=== PATIENT | male | born 1930 | race Caucasian/White ===

== ENCOUNTER 2017-08-25 10:28 | Day surgery (SDC) | payer OTHER ==
[~2017-08-25] VITALS: Ht 180.3 cm; Wt 84.5 kg
[~2017-08-25 10:28] MED LIST: ALBU90OI6 INH; ASPI81CH PO; BACL10 PO; CYCL10 PO; Calcium Carbon500 MG PO; Cephalexin250 MG/5 M PO; DOCU100 PO; ERGO400 PO; EXTRA STRENGTH500 MG PO; Garlic Oil1000 MG PO; Hair, Skin & N1 EACH PO; Keflex500 MG PO; LAVAP17G PO; LEVFLO500 PO; LEVSOD100 PO; LEVSOD88 PO; OXYC5 PO; POTBIC25 PO; SENN187 PO; STIMULANT LAXA1 EACH PO; Stool Softener100 MG PO; TAMS.4ER PO; TRAM50 PO; Zofran Odt8 MG SL
== END 2017-08-25 13:13 | disposition home or self-care (01) ==
LOC: ORSCSDS 10:28
PROVIDERS: Orthopaedic Surgery
PROC: 01N54ZZ Release Median Nerve, Percutaneous Endoscopic Approach (ICD-10-PCS; principal; 2017-08-25 12:00)
DX: G56.02 Carpal tunnel syndrome, left upper limb (principal); I10 Essential (primary) hypertension; J44.9 Chronic obstructive pulmonary disease, unspecified; Z87.891 Personal history of nicotine dependence; Z79.899 Other long term (current) drug therapy
CPT/HCPCS: J0171; J0690; J2250; J3010; J7120

== ENCOUNTER 2018-03-31 07:35 | Day surgery (SDC) | payer OTHER ==
[~2018-03-31] VITALS: Ht 180.3 cm; Wt 83.9 kg
[~2018-03-31 07:35] MED LIST changes: +Advil200 M1 PO; +Garlic1 EAC1 PO
--- NOTE | 2018-03-31 08:16 | NUR ---
History, Chart, Medications and Allergies reviewed before start of procedure. Lungs clear T/O to Auscultation. Patient confirms NPO status and agrees with scheduled surgery. Patient States Post-Procedure ride home has been arranged.
--- NOTE | 2018-03-31 09:01 | NUR ---
03/31/18 0901 Leonidas Pompa See Anesthesia record O2 VIA N/C INTACT THROUGHOUT SEDATION/PROCEDURE. Bite Block PlacedPatient to ENDO 1History, Chart, Medications and Allergies reviewed before start of procedure.MONITOR INTACT WITH CONTINUOUS PULSE OXIMETRY AND INTERMITTENT BP.
--- NOTE | 2018-03-31 10:06 | NUR ---
Patient up to Ambulate independently. Gait steady. Discharge instructions reviewed with patient. Patient verbalizes understanding. Copy given to patient to take home. Patient States Post-Procedure ride home has been arranged. Discharged via wheelchair to private car for ride home.
== END 2018-03-31 23:34 | disposition home or self-care (01) ==
LOC: ORSCMMR 07:35 → ORD 09:15 → ORSCMMR 09:15
PROVIDERS: Internal Medicine Gastroenterology
PROC: 0DJ08ZZ Inspection of Upper Intestinal Tract, Via Natural or Artificial Opening Endoscopic (ICD-10-PCS; principal; 2018-03-31 09:15)
PROC: 0D757ZZ Dilation of Esophagus, Via Natural or Artificial Opening (ICD-10-PCS; principal; 2018-03-31 09:15)
DX: R13.10 Dysphagia, unspecified (principal); K22.2 Esophageal obstruction; K44.9 Diaphragmatic hernia without obstruction or gangrene; I10 Essential (primary) hypertension; C34.90 Malignant neoplasm of unspecified part of unspecified bronchus or lung; Z79.82 Long term (current) use of aspirin; Z79.899 Other long term (current) drug therapy
CPT/HCPCS: J7120

== ENCOUNTER 2018-08-01 17:10 | Inpatient (IN) | payer OTHER ==
[~2018-08-01] VITALS: Ht 182.9 cm; Wt 79.3 kg
[~2018-08-01 17:10] MED LIST changes: -ASPI81CH PO; +Aspirin EC81 MG PO; -LEVSOD100 PO; +LEVSOD112 PO
[2018-08-01 19:34] LABS: BASOPHILS ABSOLUTE AUTO 0.05 K/mm3 (0.00-0.23); BASOPHILS PERCENT AUTO 1 % (0-2); EOSINOPHILS ABSOLUTE AUTO 0.05 K/mm3 (0.00-0.68); EOSINOPHILS PERCENT AUTO 1 % (0-6); Hematocrit 42.1 % (37.0-53.0); Hemoglobin 13.7 g/dL (13.5-17.5); IMMATURE GRAN ABSOLUTE AUTO 0.04 K/mm3 (0.00-0.10); IMMATURE GRAN PERCENT AUTO 0 % (0-1); LYMPHOCYTES ABSOLUTE AUTO 1.23 K/mm3 (0.84-5.20); LYMPHOCYTES PERCENT AUTO 12 % (21-46); MONOCYTES PERCENT AUTO 8 % (4-13); Mean Corpuscular HGB 33.2 pg (26.0-34.0); Mean Corpuscular HGB Conc 32.5 g/dL (31.5-36.5); Mean Corpuscular Volume 102 fL (80-100); Mean Platelet Volume 9.7 fL (9.1-12.4); NEUTROPHILS PERCENT AUTO 80 % (41-73); Platelet Count 309 K/mm3 (150-400); RDW Coefficient Variation 14.3 % (11.7-14.2); RDW Standard Deviation 53.9 fL (35.1-46.3); Red Blood Cell Count 4.13 M/mm3 (4.30-5.90); White Blood Cell Count 10.67 K/mm3 (4.00-11.30)
[2018-08-01 19:50] LABS: Albumin, Blood 3.9 g/dL (3.4-5.0); Albumin/Globulin Ratio 1.1 (0.8-1.8); Bilirubin, Total 1.6 mg/dL (0.1-1.0); Bun/Creatinine Ratio 18.5 (12.0-20.0); Calcium, Blood 9.8 mg/dL (8.5-10.1); Creatinine, Blood 1.46 mg/dL (0.60-1.20); Globulin, Blood 3.7 g/dL (2.2-4.0); Potassium, Blood 4.2 mmol/L (3.5-5.5); Total Protein, Blood 7.6 g/dL (6.4-8.2)
[2018-08-01 20:09] LABS: Source, Urine Clean Catch
[2018-08-01 20:13] LABS: Bilirubin, Urine Neg (Neg); Blood, Urine 5+ (Neg); Glucose Qualitative, Urine Neg (Neg); Ketones, Urine 1+ (Neg); Leukocyte Esterase, Urine 2+ (Neg); Nitrite, Urine Neg (Neg); Protein, Urine 2+ (Neg); Specific Gravity, Urine 1.015 (1.003-1.022); Urobilinogen, Urine 1+ (Normal)
[2018-08-01 20:21] LABS: Appearance, Urine Clear (Clear); Color, Urine Yellow (P-Yellow)
[2018-08-01 20:23] LABS: Bacteria Not Seen /hpf; Red Blood Cells, Urine 50-100 /hpf (0-2); Squamous Epithelial Cells Rare /hpf (Few)
[2018-08-01] MEDS ORDERED: TRAM50 PO (20:34)
[2018-08-01] MEDS ORDERED: VOLTAREN100 GM TOP (20:34)
[2018-08-02 04:57] LABS: BASOPHILS ABSOLUTE AUTO 0.03 K/mm3 (0.00-0.23); BASOPHILS PERCENT AUTO 1 % (0-2); EOSINOPHILS ABSOLUTE AUTO 0.09 K/mm3 (0.00-0.68); EOSINOPHILS PERCENT AUTO 2 % (0-6); Hematocrit 36.6 % (37.0-53.0); Hemoglobin 11.7 g/dL (13.5-17.5); IMMATURE GRAN ABSOLUTE AUTO 0.02 K/mm3 (0.00-0.10); IMMATURE GRAN PERCENT AUTO 0 % (0-1); LYMPHOCYTES ABSOLUTE AUTO 0.86 K/mm3 (0.84-5.20); LYMPHOCYTES PERCENT AUTO 16 % (21-46); MONOCYTES ABSOLUTE AUTO 0.65 K/mm3 (0.16-1.47); MONOCYTES PERCENT AUTO 12 % (4-13); Mean Corpuscular HGB 32.9 pg (26.0-34.0); Mean Corpuscular Volume 103 fL (80-100); Mean Platelet Volume 9.7 fL (9.1-12.4); NEUTROPHILS ABSOLUTE AUTO 3.85 K/mm3 (1.96-9.15); NEUTROPHILS PERCENT AUTO 70 % (41-73); Platelet Count 246 K/mm3 (150-400); RDW Coefficient Variation 14.2 % (11.7-14.2); Red Blood Cell Count 3.56 M/mm3 (4.30-5.90)
[2018-08-02 05:13] LABS: Calcium, Blood 8.5 mg/dL (8.5-10.1); Creatinine, Blood 1.39 mg/dL (0.60-1.20); Potassium, Blood 4.1 mmol/L (3.5-5.5)
--- NOTE | 2018-08-02 07:35 | NUR ---
SHIFT SUMMARY PT ADMITTED FROM ER THIS SHIFT. PT A&O X4 T/O SHIFT. 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 SCD'S TO BLE'S. SIDE RAILS X3 FOR SAFETY. PAIN IN BACK MANAGED PER EMAR. PT DENIED NAUSEA, CP AND SOB T/O SHIFT. PT INDEPENDENTLY BED MOBILE. CALL LIGHT IN REACH; PT DEMONSTRATES USE. REPORT GIVEN TO DAY SHIFT RN.
--- NOTE | 2018-08-02 18:42 | NUR ---
SHIFT SUMMARY PT HAS DONE WELL TODAY. WORKED WITH THERAPY, PAIN SEEMS TO BE MANAGED FAIRLY WELL, VOIDING, AND HAD SMALL BM.
[2018-08-03 06:08] LABS: Anion Gap 5 mmol/L (6-16); Blood Urea Nitrogen 18 mg/dL (8-24); Bun/Creatinine Ratio 17.5 (12.0-20.0); CO2, Blood 27 mmol/L (21-32); Calcium, Blood 8.4 mg/dL (8.5-10.1); Chloride, Blood 110 mmol/L (98-108); Creatinine, Blood 1.03 mg/dL (0.60-1.20); Glomerular Filtration Rate >60 (60-); Glucose, Blood 78 mg/dL (70-99); Potassium, Blood 4.5 mmol/L (3.5-5.5); Sodium, Blood 142 mmol/L (136-145)
[2018-08-03] MEDS ORDERED: LIDO700A20 TOP (11:32)
[2018-08-03] MEDS ORDERED: ONDA4ODT PO (11:38)
--- NOTE | 2018-08-03 12:34 | NUR ---
DISCHARGE PT AND SPOUSE PROVIDED WITH WRITTEN AND VERBAL DISCHARGE INSTRUCTIONS. THEY REPORTED UNDERSTANDING. PT ESCORTED OUT IN W/C.
== END 2018-08-03 12:15 | disposition home health service (06) | DRG 683 ==
LOC: ER 17:10 → SURS 21:02
PROVIDERS: Emergency Medicine; Hospitalist; Physician Assistant; ADMIT Family Medicine
DX: N17.9 Acute kidney failure, unspecified (principal); S32.010A Wedge compression fracture of first lumbar vertebra, initial encounter for closed fracture; J44.9 Chronic obstructive pulmonary disease, unspecified; N13.30 Unspecified hydronephrosis; N40.0 Benign prostatic hyperplasia without lower urinary tract symptoms; M19.90 Unspecified osteoarthritis, unspecified site; Z90.2 Acquired absence of lung [part of]; Z87.891 Personal history of nicotine dependence; Z90.49 Acquired absence of other specified parts of digestive tract; E86.0 Dehydration; Z79.82 Long term (current) use of aspirin; Z85.118 Personal history of other malignant neoplasm of bronchus and lung; W18.30XA Fall on same level, unspecified, initial encounter; Y93.89 Activity, other specified; E03.9 Hypothyroidism, unspecified
CPT/HCPCS: 36415; 51701; 72100; 72128; 72131; 80048; 80053; 81001; 85025; 87086; 93005; 93010; 94760; 96361-59; 96374-59; 96375-59; 97116; 97162; 97165; 97530; 97535; 99285-25; A9270-GY; J0696; J1170; J1650; J2405; J7030

== ENCOUNTER 2018-08-24 08:32 | Emergency (ER) | payer OTHER ==
[~2018-08-24] VITALS: Ht 180.3 cm; Wt 77.6 kg
[~2018-08-24 08:32] MED LIST changes: +LIDO700A20 TOP; +ONDA4ODT PO; +VOLTAREN100 GM TOP
[2018-08-24 10:12] LABS: BASOPHILS ABSOLUTE AUTO 0.05 K/mm3 (0.00-0.23); BASOPHILS PERCENT AUTO 1 % (0-2); EOSINOPHILS ABSOLUTE AUTO 0.16 K/mm3 (0.00-0.68); EOSINOPHILS PERCENT AUTO 4 % (0-6); Hematocrit 37.4 % (37.0-53.0); Hemoglobin 12.2 g/dL (13.5-17.5); IMMATURE GRAN ABSOLUTE AUTO 0.02 K/mm3 (0.00-0.10); IMMATURE GRAN PERCENT AUTO 1 % (0-1); LYMPHOCYTES ABSOLUTE AUTO 1.01 K/mm3 (0.84-5.20); LYMPHOCYTES PERCENT AUTO 23 % (21-46); MONOCYTES ABSOLUTE AUTO 0.44 K/mm3 (0.16-1.47); MONOCYTES PERCENT AUTO 10 % (4-13); Mean Corpuscular HGB 33.1 pg (26.0-34.0); Mean Corpuscular HGB Conc 32.6 g/dL (31.5-36.5); Mean Corpuscular Volume 101 fL (80-100); Mean Platelet Volume 9.8 fL (9.1-12.4); NEUTROPHILS ABSOLUTE AUTO 2.69 K/mm3 (1.96-9.15); NEUTROPHILS PERCENT AUTO 62 % (41-73); Platelet Count 248 K/mm3 (150-400); RDW Coefficient Variation 14.3 % (11.7-14.2); RDW Standard Deviation 53.2 fL (35.1-46.3); Red Blood Cell Count 3.69 M/mm3 (4.30-5.90); White Blood Cell Count 4.37 K/mm3 (4.00-11.30)
[2018-08-24 10:16] LABS: Source, Urine Clean Catch
[2018-08-24 10:20] LABS: Appearance, Urine Turbid (Clear); Bilirubin, Urine Neg (Neg); Blood, Urine 5+ (Neg); Color, Urine Brown (P-Yellow); Glucose Qualitative, Urine Neg (Neg); Ketones, Urine 1+ (Neg); Leukocyte Esterase, Urine 3+ (Neg); Nitrite, Urine Neg (Neg); Protein, Urine 4+ (Neg); Urobilinogen, Urine NORM (Normal)
[2018-08-24 10:34] LABS: Alanine Aminotransfer (ALT/SGP 30 U/L (12-78); Albumin, Blood 3.6 g/dL (3.4-5.0); Albumin/Globulin Ratio 1.1 (0.8-1.8); Alk Phos 99 U/L (50-136); Anion Gap 6 mmol/L (6-16); Aspartate Aminotrans (AST/SGOT 24 U/L (12-37); Bilirubin, Total 0.8 mg/dL (0.1-1.0); Blood Urea Nitrogen 20 mg/dL (8-24); Bun/Creatinine Ratio 21.7 (12.0-20.0); CO2, Blood 28 mmol/L (21-32); Calcium, Blood 8.9 mg/dL (8.5-10.1); Chloride, Blood 107 mmol/L (98-108); Creatinine, Blood 0.92 mg/dL (0.60-1.20); Globulin, Blood 3.4 g/dL (2.2-4.0); Glomerular Filtration Rate >60 (60-); Glucose, Blood 95 mg/dL (70-99); Potassium, Blood 4.1 mmol/L (3.5-5.5); Sodium, Blood 141 mmol/L (136-145)
[2018-08-24 10:37] LABS: Bacteria Few /hpf; Red Blood Cells, Urine TNTC /hpf (0-2); Squamous Epithelial Cells Not Seen /hpf (Few)
[2018-08-24] MEDS ORDERED: Nitrofurantoin100 MG PO (10:56)
== END 2018-08-24 13:12 | disposition home or self-care (01) ==
LOC: ER 08:32
PROVIDERS: Physician Assistant
DX: N39.0 Urinary tract infection, site not specified (principal); Z85.118 Personal history of other malignant neoplasm of bronchus and lung; Z85.01 Personal history of malignant neoplasm of esophagus; Z87.891 Personal history of nicotine dependence; Z79.899 Other long term (current) drug therapy; Z79.891 Long term (current) use of opiate analgesic
CPT/HCPCS: 36415; 74176; 80053; 81001; 85025; 87086; 99284-25

== ENCOUNTER 2018-09-20 11:26 | Emergency (ER) | payer OTHER ==
[~2018-09-20] VITALS: Ht 180.3 cm; Wt 72.6 kg
[~2018-09-20 11:26] MED LIST changes: +Nitrofurantoin100 MG PO
[2018-09-20 12:11] LABS: BASOPHILS ABSOLUTE AUTO 0.04 K/mm3 (0.00-0.23); BASOPHILS PERCENT AUTO 1 % (0-2); EOSINOPHILS ABSOLUTE AUTO 0.09 K/mm3 (0.00-0.68); EOSINOPHILS PERCENT AUTO 2 % (0-6); Hematocrit 38.4 % (37.0-53.0); Hemoglobin 12.6 g/dL (13.5-17.5); IMMATURE GRAN ABSOLUTE AUTO 0.01 K/mm3 (0.00-0.10); IMMATURE GRAN PERCENT AUTO 0 % (0-1); LYMPHOCYTES ABSOLUTE AUTO 0.94 K/mm3 (0.84-5.20); LYMPHOCYTES PERCENT AUTO 23 % (21-46); MONOCYTES ABSOLUTE AUTO 0.39 K/mm3 (0.16-1.47); MONOCYTES PERCENT AUTO 10 % (4-13); Mean Corpuscular HGB 33.4 pg (26.0-34.0); Mean Corpuscular HGB Conc 32.8 g/dL (31.5-36.5); Mean Corpuscular Volume 102 fL (80-100); Mean Platelet Volume 9.8 fL (9.1-12.4); NEUTROPHILS ABSOLUTE AUTO 2.56 K/mm3 (1.96-9.15); NEUTROPHILS PERCENT AUTO 64 % (41-73); Platelet Count 216 K/mm3 (150-400); RDW Coefficient Variation 14.4 % (11.7-14.2); RDW Standard Deviation 54.2 fL (35.1-46.3); Red Blood Cell Count 3.77 M/mm3 (4.30-5.90); White Blood Cell Count 4.03 K/mm3 (4.00-11.30)
[2018-09-20 12:33] LABS: Alanine Aminotransfer (ALT/SGP 26 U/L (12-78); Albumin, Blood 3.6 g/dL (3.4-5.0); Alk Phos 71 U/L (50-136); Anion Gap 6 mmol/L (6-16); Aspartate Aminotrans (AST/SGOT 20 U/L (12-37); Bilirubin, Total 0.8 mg/dL (0.1-1.0); Blood Urea Nitrogen 13 mg/dL (8-24); Bun/Creatinine Ratio 13.1 (12.0-20.0); CO2, Blood 29 mmol/L (21-32); Calcium, Blood 9.1 mg/dL (8.5-10.1); Chloride, Blood 108 mmol/L (98-108); Creatinine, Blood 0.99 mg/dL (0.60-1.20); Globulin, Blood 3.5 g/dL (2.2-4.0); Glomerular Filtration Rate >60 (60-); Glucose, Blood 93 mg/dL (70-99); Potassium, Blood 4.1 mmol/L (3.5-5.5); Sodium, Blood 143 mmol/L (136-145); Total Protein, Blood 7.1 g/dL (6.4-8.2)
[2018-09-20] MEDS ORDERED: Prilosec Otc20 MG PO (13:10)
[2018-11-16] MEDS ORDERED: DOCU100 PO (14:38)
[2018-11-16] MEDS ORDERED: TRAM50 PO (14:39)
[2018-11-16] MEDS ORDERED: VITAMIN D31000 UNI1 PO (14:40)
[2018-11-16] MEDS ORDERED: ACET325 PO (14:40)
[2018-11-16] MEDS ORDERED: ONDA4 PO (14:41)
[2018-11-16] MEDS ORDERED: ONDA4ODT (14:42)
== END 2018-09-20 13:28 | disposition home or self-care (01) ==
LOC: ER 11:26
PROVIDERS: Emergency Medicine
DX: K80.70 Calculus of gallbladder and bile duct without cholecystitis without obstruction (principal); J44.9 Chronic obstructive pulmonary disease, unspecified; Z85.118 Personal history of other malignant neoplasm of bronchus and lung; Z85.01 Personal history of malignant neoplasm of esophagus; Z87.891 Personal history of nicotine dependence; Z79.899 Other long term (current) drug therapy
CPT/HCPCS: 36415; 74177; 80053; 83690; 85025; 99284-25; Q9967

== ENCOUNTER 2018-10-07 09:24 | Emergency (ER) | payer OTHER ==
[~2018-10-07] VITALS: Ht 180.3 cm; Wt 69.0 kg
[~2018-10-07 09:24] MED LIST changes: +Prilosec Otc20 MG PO
[2018-10-07] MEDS ORDERED: Ultram50 MG PO (11:28)
[2018-11-16] MEDS ORDERED: DOCU100 PO (14:38)
[2018-11-16] MEDS ORDERED: TRAM50 PO (14:39)
[2018-11-16] MEDS ORDERED: VITAMIN D31000 UNI1 PO (14:40)
[2018-11-16] MEDS ORDERED: ACET325 PO (14:40)
[2018-11-16] MEDS ORDERED: ONDA4 PO (14:41)
[2018-11-16] MEDS ORDERED: ONDA4ODT (14:42)
== END 2018-10-07 11:38 | disposition home or self-care (01) ==
LOC: ER 09:24
DX: M53.3 Sacrococcygeal disorders, not elsewhere classified (principal); M54.5 Low back pain; Z79.899 Other long term (current) drug therapy; Z87.891 Personal history of nicotine dependence
CPT/HCPCS: 99281

== ENCOUNTER 2018-11-17 14:56 | Day surgery (SDC) | payer OTHER ==
[~2018-11-17] VITALS: Ht 180.3 cm; Wt 68.3 kg
[~2018-11-17 14:56] MED LIST changes: +ACET325 PO; +ONDA4 PO; +ONDA4ODT; +Ultram50 MG PO; +VITAMIN D31000 UNI1 PO
--- NOTE | 2018-11-17 15:23 | NUR ---
INTO SDS VIA WC. PT A&OX3-[place] [facility] PT REPORTS 5/10 BACK PAIN. LUNGS ESSENTIALLY CLEAR-HX LOBECTOMY. NO NOTED SOB. HISTORY AND ALLERGIES REVIEWED. NPO STATUS CONFIRMED.
--- NOTE | 2018-11-17 16:19 | NUR ---
11/17/18 1619 Leonidas Pompa Bite Block PlacedPatient to ENDO 1MONITOR INTACT WITH CONTINUOUS PULSE OXIMETRY AND INTERMITTENT BP.O2 VIA N/C INTACT THROUGHOUT SEDATION/PROCEDURE.See Anesthesia record.
--- NOTE | 2018-11-17 17:33 | NUR ---
TO STEP WITH RN WHOM CONTINUES TO MONITOR AND CARE FOR
--- NOTE | 2018-11-17 17:37 | NUR ---
DOCTOR AT BEDSIDE TALKING TO PATIENT AND
--- NOTE | 2018-11-17 17:58 | NUR ---
Discharge instructions reviewed with patient. Patient verbalizes understanding. Copy given to patient to take home. Patient States Post-Procedure ride home has been arranged. Discharged via wheelchair to private car for ride home.
== END 2018-11-17 23:18 | disposition home or self-care (01) ==
LOC: ORSCMMR 14:56
PROVIDERS: Internal Medicine Gastroenterology
PROC: 0D7B8ZZ Dilation of Ileum, Via Natural or Artificial Opening Endoscopic (ICD-10-PCS; principal; 2018-11-17 07:30)
PROC: 0DBL8ZX Excision of Transverse Colon, Via Natural or Artificial Opening Endoscopic, Diagnostic (ICD-10-PCS; principal; 2018-11-17 07:30)
DX: R63.4 Abnormal weight loss (principal); R10.9 Unspecified abdominal pain; D12.3 Benign neoplasm of transverse colon; K56.699 Other intestinal obstruction unspecified as to partial versus complete obstruction; K57.30 Diverticulosis of large intestine without perforation or abscess without bleeding; R13.14 Dysphagia, pharyngoesophageal phase; K20.8 Other esophagitis; K44.9 Diaphragmatic hernia without obstruction or gangrene; I10 Essential (primary) hypertension; Z87.891 Personal history of nicotine dependence; R11.2 Nausea with vomiting, unspecified; Z79.899 Other long term (current) drug therapy
CPT/HCPCS: 88305; C1726; J2704; J7120

== ENCOUNTER 2018-12-11 15:49 | Emergency (ER) | payer OTHER ==
[~2018-12-11] VITALS: Ht 180.3 cm; Wt 68.0 kg
== END 2018-12-11 17:56 | disposition home or self-care (01) ==
LOC: ER 15:49
DX: S01.111A Laceration without foreign body of right eyelid and periocular area, initial encounter (principal); S40.211A Abrasion of right shoulder, initial encounter; S50.311A Abrasion of right elbow, initial encounter; S80.211A Abrasion, right knee, initial encounter; Z85.118 Personal history of other malignant neoplasm of bronchus and lung; Z85.01 Personal history of malignant neoplasm of esophagus; Z87.442 Personal history of urinary calculi; Z87.891 Personal history of nicotine dependence; Z79.899 Other long term (current) drug therapy; W01.10XA Fall on same level from slipping, tripping and stumbling with subsequent striking against unspecified object, initial encounter
CPT/HCPCS: 12011; 99283-25

== ENCOUNTER 2019-05-26 12:58 | Emergency (ER) | payer OTHER ==
[~2019-05-26] VITALS: Ht 180.3 cm; Wt 77.1 kg
== END 2019-05-26 16:14 | disposition home or self-care (01) ==
LOC: ER 12:58
DX: S61.412A Laceration without foreign body of left hand, initial encounter (principal); W26.0XXA Contact with knife, initial encounter
CPT/HCPCS: 12001; 99282-25

== ENCOUNTER 2019-09-14 11:29 | Day surgery (SDC) | payer OTHER ==
[~2019-09-14] VITALS: Ht 180.3 cm; Wt 83.1 kg
--- NOTE | 2019-09-14 14:56 | NUR ---
09/14/19 1456 Sarah Archer WHEN ASKED IF PT. HAD ANY SORE THROAT PT. STATED "MAYBE A LITTLE BIT." PT. DRINKING WATER WITHOUT ANY PROBLEMS. PT. DENIES TROUBLE SWALLOWING.
== END 2019-09-14 14:40 | disposition home or self-care (01) ==
LOC: ORSCSDS 11:29
PROVIDERS: Internal Medicine Gastroenterology
PROC: 0D758ZZ Dilation of Esophagus, Via Natural or Artificial Opening Endoscopic (ICD-10-PCS; principal; 2019-09-14 15:30)
PROC: 0DJ08ZZ Inspection of Upper Intestinal Tract, Via Natural or Artificial Opening Endoscopic (ICD-10-PCS; principal; 2019-09-14 15:30)
DX: R13.10 Dysphagia, unspecified (principal); Z85.29 Personal history of malignant neoplasm of other respiratory and intrathoracic organs; K20.9 Esophagitis, unspecified; K44.9 Diaphragmatic hernia without obstruction or gangrene; K21.9 Gastro-esophageal reflux disease without esophagitis; J44.9 Chronic obstructive pulmonary disease, unspecified; Z87.891 Personal history of nicotine dependence; Z79.899 Other long term (current) drug therapy
CPT/HCPCS: J2001; J2250; J2704; J7120